=== PATIENT | male | born 1930 | race Caucasian/White ===

== ENCOUNTER 2017-10-20 23:38 | Observation (INO) | payer MEDICARE ==
[2017-10-21] MEDS ORDERED: Zofran 4 MG/2 ML VIAL IV ONE ×2 (00:09→01:40)
[2017-10-21] MEDS ORDERED: Hydromorphone 1 mg/ml Ampule IV ONE (00:09)
[2017-10-21] MEDS ORDERED: Sodium Chloride 0.9% 1000 ML 1,000 ML IV SCH ×2 (00:15→03:00)
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
[2017-10-21] MEDS ORDERED: Hydromorphone 1 mg/ml Ampule ONE (00:25)
[2017-10-21] MEDS ORDERED: Zofran 4 MG/2 ML VIAL ONE ×2 (00:25→01:40)
[2017-10-21 00:29] LABS: BASOPHIL % 0.1 % (0.0-0.4); Basophil (Absolute #) 0.01 (0-0.4); Eosinophil % 2.4 % (0.00-5.0); Eosinophil (Absolute #) 0.17 (0-0.5); Granulocyte Absolute (ANC) 4.73 (1.4-6.9); Granulocytes % 67.3 % (36.0-66.0); Hematocrit 35.6 % (42-50); Hemoglobin 11.6 gm/dl (12.5-18.0); Lymphocyte (Absolute #) 1.53 (1.0-4.6); Lymphocytes % 21.8 % (24.0-44.0); Mean Cell Volume 95.4 fl (78-100); Mean Corpuscular Hgb Concent. 32.6 g/dl (32-36); Mean Platelet Volume 9.3 fl (6-9.5); Monocyte (Absolute #) 0.59 (0.0-1.3); Monocytes % 8.4 % (0.0-12.0); Platelet Count 191 K/mm3 (150-450); Red Blood Count 3.73 M/mm3 (4.1-5.6); Red Cell Distribution Width 13.6 % (11.5-14.0)
[2017-10-21 00:55] LABS: ALBUMIN 3.8 g/dL (3.4-5.0); ANION GAP 12.7 MEQ/L (5-15); BILIRUBIN,TOTAL 0.3 mg/dL (0.2-1.0); Calcium 9.3 mg/dL (8.5-10.1); Carbon Dioxide 25.9 mEq/L (21-32); Creatinine 1 1.62 mg/dl (0.55-1.30); Potassium 3.8 mEq/L (3.5-5.1); Total Protein 6.6 gm/dL (6.4-8.2)
[2017-10-21 02:33] LABS: Appearance CLEAR (CLEAR); Bilirubin NEGATIVE (NEGATIVE); Blood 250 Ery/ul (0-5); Glucose NEGATIVE (NEGATIVE); Ketones NEGATIVE (NEGATIVE); Leukocyte Esterase NEGATIVE (NEGATIVE); Nitrite NEGATIVE (NEGATIVE); Protein,Urine Dip TRACE (Negative); Urobilinogen NORMAL mg/dL (0-1)
[2017-10-21 02:34] LABS: Amourphous Crystal FEW /HPF (NEGATIVE); Bacteria MODERATE /HPF (NEGATIVE); Epithelial Cells RARE /HPF (FEW); Mucus SLIGHT /HPF (NEGATIVE)
[2017-10-21] MEDS ORDERED: MORPHINE SULFATE 2 MG INJ IV PRN (02:59)
[2017-10-21] MEDS ORDERED: Zofran 4 MG/2 ML VIAL IV PRN (02:59)
[2017-10-21 05:42] LABS: BASOPHIL % 0.1 % (0.0-0.4); Basophil (Absolute #) 0.01 (0-0.4); Eosinophil % 0.5 % (0.00-5.0); Eosinophil (Absolute #) 0.04 (0-0.5); Granulocyte Absolute (ANC) 6.42 (1.4-6.9); Granulocytes % 83.8 % (36.0-66.0); Hematocrit 32.3 % (42-50); Hemoglobin 10.1 gm/dl (12.5-18.0); Lymphocyte (Absolute #) 0.73 (1.0-4.6); Lymphocytes % 9.5 % (24.0-44.0); Mean Corpuscular Hemoglobin 30.3 pg (26-32); Mean Corpuscular Hgb Concent. 31.3 g/dl (32-36); Mean Platelet Volume 9.4 fl (6-9.5); Monocyte (Absolute #) 0.47 (0.0-1.3); Monocytes % 6.1 % (0.0-12.0); Platelet Count 194 K/mm3 (150-450); Red Blood Count 3.33 M/mm3 (4.1-5.6); Red Cell Distribution Width 13.6 % (11.5-14.0); White Blood Count 7.7 K/mm3 (4.0-10.5)
[2017-10-21 05:55] LABS: ANION GAP 10.6 MEQ/L (5-15); Calcium 8.7 mg/dL (8.5-10.1); Carbon Dioxide 27.8 mEq/L (21-32); Creatinine 1 1.6 mg/dl (0.55-1.30); Potassium 4.4 mEq/L (3.5-5.1)
--- NOTE | 2017-10-21 09:05 | XRAY ---
Indication: Back pain. History prostate cancer and renal stones. Multiple contiguous axial images obtained through the abdomen and pelvis without contrast using renal stone protocol. Comparison: March 16, 2014. Lung bases demonstrates mild bibasilar dependent atelectasis/scarring. No consolidation or effusion. Heart is not enlarged. Previous 1.5 cm left renal staghorn calculus today measures 1.9 cm. Stable punctate bilateral renal calculi and bilateral renal cysts. There is now mild bilateral hydronephrosis and prominence to both ureters down to the level of the pelvis where there is now bulky and irregular prostate mass measuring 10 x 5.7 cm in greatest axial dimension effacing and invading the posterior bladder wall. Additional new bilateral pelvic lymphadenopathy, largest on the right measuring 3.0 x 2.4 x 4.0 cm. There are also new scattered prominent periaortic/pericaval nodes. Noncontrasted stomach and bowel loops appear nonobstructed. Mild diffuse colonic diverticulosis greatest sigmoid. Stable hepatic flexure colonic lipoma. No free fluid/air. Remaining liver, gallbladder, pancreas, spleen, and adrenal glands appear unremarkable for noncontrast exam. Mild/moderate scattered aortoiliac calcifications without AAA. Osseous structures intact again with moderate degenerative changes throughout the spine. No suspicious bony lesions. Impression: 1. New prostate mass effacing and invading the posterior bladder wall favoring known prostate cancer. Also new bulky pelvic and retroperitoneal lymphadenopathy presumed metastatic. Subsequent mild bilateral hydronephrosis and bilateral ureteral prominence. 2. Again bilateral renal calculi with interval enlarging left renal staghorn calculus. Stable bilateral renal cysts. 3. Stable colonic diverticulosis and hepatic flexure colonic lipoma. Comment: Preliminary interpretation was made by [facility]. No critical discrepancy. CT DI 23.14
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
[2017-10-21] MEDS: OXYCODONE-ACETAMINOPHEN 10-325 PO PRN ×2 (09:45→14:27)
[2017-10-21] MEDS: ENOXAPARIN SODIUM SQ SCH (10:55)
[2017-10-21] MEDS ORDERED: Flomax 0.4 MG PO SCH (22:00)
[2017-10-22 07:27] VITALS: O2SAT 96
--- NOTE | 2017-10-22 08:47 | PCM.DS ---
Discharge Summary Date of Admission: 10/21/17 03:50 Admitting Physician: NICHELLE NY Primary Care Provider: NICHELLE [place] Allergies Allergies penicillin G Allergy (Mild, Verified 08/06/16 09:08) Rash Hospital Summary - Hospital Course Hospital Course: Pt with metastatic prostate ca admitted through ER with new R flank pain and weakness. CT abd/pelvis with pelvic mass. I spoke wiht DR. Baltazar yesterday, who spoke with Dr. Cerrato - pt awaiting approval for Xdande treatment; otherwise receiving Leupron and will go by Dr. Baltazar's office after discharge for his Leupron injection. States he is "about the same" as yesterday but is in much better spirits, per RN he reported yesterday that the percocet helped much more than the morphine ( although he is unsure this morning). Yves po very well. Will plan to d/c home today on po percocet prn. - Vitals & Intake/Output Vital Signs: Vital Signs Temperature 98.4 F 10/22/17 07:26 Pulse Rate 81 10/22/17 07:26 Respiratory Rate 18 10/22/17 07:26 Blood Pressure 108/81 10/22/17 07:26 O2 Sat by Pulse Oximetry 96 10/22/17 07:26 Oxygen-Last Documented O2 Percentage 3 Liters = 32% Intake & Output: Intake & Output 10/19/17 10/20/17 10/21/17 10/22/17 11:59 11:59 11:59 11:59 Intake Total 2573 Output Total 700 Balance 1873 Weight 93.5 kg 95.4 kg - Lab Result Diagrams: 10/21/17 05:15 10/21/17 05:15 - Procedures and Test Procedures and Tests throughout Hospitalization: Therapy Orders & Screens 10/21/17 20:10 Oxygen NASAL CANNULA 3 lpm Comment: Diagnosis: Failure to thrive/Adult, Pelvic mass Discharge Exam General Appearance: no apparent distress, alert Neurologic Exam: alert, cooperative Skin Exam: normal color, warm, dry, No rash Ears, Nose, Throat Exam: moist mucous membranes Neck Exam: normal inspection Respiratory Exam: normal breath sounds, lungs clear, No crackles/rales, No rhonchi, No wheezing Cardiovascular Exam: regular rate/rhythm, normal heart sounds, No murmur Gastrointestinal/Abdomen Exam: soft, other (hyperactive bowel sounds), No tenderness, No distention, No mass Back Exam: normal inspection, No rash Final Diagnosis/Problem List - Final Discharge Diagnosis/Problem (1) Flank pain Current Visit: Yes Status: Acute Assessment & Plan: Persistent, due to prostate cancer. Home on percocet. (2) Metastatic malignant neoplasm to prostate Current Visit: Yes Status: Acute Assessment & Plan: To Dr. Baltazar's office today or tomorrow during business hours for Leupron injection. (3) Failure to thrive Current Visit: Yes Status: Acute Assessment & Plan: Make sure pt can get up on his own before discharging to home. (4) Pelvic mass Current Visit: Yes Status: Chronic (5) SOB (shortness of breath) Current Visit: No Status: Resolved - Discharge Disposition: Home, Self-Care Condition: Stable Prescriptions: New Oxycodone / APAP 10/325 mg [Oxycodone-Acetaminophen 10-325] 1 tab PO Q4H PRN PRN #42 tablet MDD 6 PRN Reason: Pain Continue Tamsulosin HCl 0.4 mg [Flomax 0.4 MG] 0.4 mg PO HS Follow up with: NICHELLE [place] [Primary Care Provider] -
[2017-10-22] MEDS: ENOXAPARIN SODIUM SQ SCH (10:03)
[2017-10-22 11:23] VITALS: BP 117/57; PULSE 87
== END 2017-10-22 11:35 | disposition home or self-care (01) ==
LOC: ED 23:38 → MED SURG 10-21 03:50
PROVIDERS: ADMIT Family Medicine; ATTEND Family Medicine
DX: C79.82 Secondary malignant neoplasm of genital organs (principal); R62.7 Adult failure to thrive; R19.00 Intra-abdominal and pelvic swelling, mass and lump, unspecified site; R06.02 Shortness of breath; I25.810 Atherosclerosis of coronary artery bypass graft(s) without angina pectoris; I25.2 Old myocardial infarction; E11.9 Type 2 diabetes mellitus without complications; Z85.830 Personal history of malignant neoplasm of bone
CPT/HCPCS: 96374; 99285; 36000; 96376; 82150; 81000; 36415; 83690; 85025; 80048; 80053; 87086; 74176; 94760 ×2; 83605; P9612; 46040; 96375; G0378; J1170; J1650; J2270; J2405; A9270-GY

== ENCOUNTER 2017-10-23 11:21 | Emergency (ER) | payer MEDICARE ==
[2017-10-23] MEDS ORDERED: Sodium Chloride 0.9% 1000 ML 1,000 ML IV SCH (12:00)
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
[2017-10-23] MEDS ORDERED: Sodium Chloride 0.9% 1000 ML 1,000 ML ONE (12:09)
[2017-10-23 12:34] LABS: ANION GAP 12.3 MEQ/L (5-15); Calcium 8.1 mg/dL (8.5-10.1); Carbon Dioxide 25.9 mEq/L (21-32); Creatinine 1 1.99 mg/dl (0.55-1.30); Potassium 3.7 mEq/L (3.5-5.1)
[2017-10-23] MEDS ORDERED: MORPHINE SULFATE 2 MG INJ IV ONE (13:03)
[2017-10-23 13:07] LABS: BASOPHIL % 0.1 % (0.0-0.4); Basophil (Absolute #) 0.01 (0-0.4); Eosinophil (Absolute #) 0.08 (0-0.5); Granulocyte Absolute (ANC) 6.25 (1.4-6.9); Granulocytes % 81.3 % (36.0-66.0); Hemoglobin 10.5 gm/dl (12.5-18.0); Lymphocyte (Absolute #) 0.73 (1.0-4.6); Lymphocytes % 9.5 % (24.0-44.0); Mean Cell Volume 97.4 fl (78-100); Mean Corpuscular Hgb Concent. 30.9 g/dl (32-36); Monocyte (Absolute #) 0.62 (0.0-1.3); Monocytes % 8.1 % (0.0-12.0); Platelet Count 184 K/mm3 (150-450); Red Blood Count 3.49 M/mm3 (4.1-5.6); Red Cell Distribution Width 13.9 % (11.5-14.0); White Blood Count 7.7 K/mm3 (4.0-10.5)
[2017-10-23] MEDS ORDERED: MORPHINE SULFATE 2 MG INJ ONE (13:08)
[2017-10-23 14:25] VITALS: BP 134/75; PULSE 74
[2017-10-23 17:30] VITALS: O2SAT 98
== END 2017-10-23 15:09 | disposition home or self-care (01) ==
LOC: ED 11:21
DX: R10.9 Unspecified abdominal pain (principal); R10.31 Right lower quadrant pain; C61 Malignant neoplasm of prostate; C79.51 Secondary malignant neoplasm of bone; R19.00 Intra-abdominal and pelvic swelling, mass and lump, unspecified site
CPT/HCPCS: 36000; 36415; 80048; 85025; 96360; 96374; 99284; J2270